=== PATIENT | female | born 1985 ===

== ENCOUNTER 2020-08-30 02:26 | Inpatient (IN) | payer BC ==
[2020-08-30] VITALS (8 sets, daily range): BP systolic 103–135; BP diastolic 72–86
[~2020-08-30] VITALS: Ht 152 cm; Wt 125.3 kg
[2020-08-30] MEDS ORDERED: MELATONIN 3 MG TABLET PO PRN (03:00)
[2020-08-30] MEDS ORDERED: diphenhydrAMINE 25 MG TAB (BENADRYL) PO PRN (03:00)
[2020-08-30] MEDS ORDERED: ONDANSETRON 4 MG (ZOFRAN) ORAL DISSOLVE TAB PO PRN (03:00)
[2020-08-30] MEDS ORDERED: ENOXAPARIN 40 MG/0.4 ML (LOVENOX) SYR SC SCH (03:00)
[2020-08-30] MEDS ORDERED: polyethylene glycoL POWDER 17 GM (MIRALAX) PACK PO PRN (03:00)
[2020-08-30] MEDS ORDERED: MILK OF MAGNESIA 400 MG/5 ML 30 ML UDC PO PRN (03:00)
[2020-08-30] MEDS ORDERED: ANTACID SUSP 30 ML UDC (MYLANTA) PO PRN (03:00)
[2020-08-30] MEDS ORDERED: ONDANSETRON 4 MG/2 ML (SDV) Z0FRAN IV PRN (03:00)
[2020-08-30] MEDS: inSUlin ASPART (NovoLOG) 1 UNIT/0.01 ML (CHARGE PER UNIT) SC SCH ×4 (06:38→21:27)
[2020-08-30 06:51] LABS: BASOPHILS % (AUTO) 0 % (0-10); EOSINOPHILS % (AUTO) 0 % (0-10); HEMATOCRIT 38 % (35-52); HEMOGLOBIN 12.8 g/dL (11.5-16.0); LYMPHOCYTES # (AUTO) 0.8 10^3/uL (1.0-4.0); LYMPHOCYTES % (AUTO) 20 % (12-44); MEAN CORPUSCULAR HEMOGLOBIN 29 pg (25-34); MEAN CORPUSCULAR HGB CONC 34 g/dL (32-36); MEAN CORPUSCULAR VOLUME 87 fL (80-99); MEAN PLATELET VOLUME 9.7 fL (9.0-12.2); MONOCYTES # (AUTO) 0.1 10^3/uL (0.0-1.0); MONOCYTES % (AUTO) 3 % (0-12); NEUTROPHILS # (AUTO) 3.1 10^3/uL (1.8-7.8); NEUTROPHILS % (AUTO) 77 % (42-75); PLATELET COUNT 144 10^3/uL (130-400)
[2020-08-30 07:00] LABS: CHLORIDE 107 MMOL/L (98-107); POTASSIUM 3.9 MMOL/L (3.6-5.0); SODIUM 140 MMOL/L (135-145)
[2020-08-30 07:01] LABS: CALCIUM 8.2 MG/DL (8.5-10.1)
[2020-08-30 07:02] LABS: GLUCOSE 123 MG/DL (70-105)
[2020-08-30 07:03] LABS: CARBON DIOXIDE 22 MMOL/L (21-32)
[2020-08-30 07:06] LABS: GFR ESTIMATED > 60
[2020-08-30 07:07] LABS: BUN/CREATININE RATIO 10
[2020-08-30] MEDS: dexAMETHasone 6 MG TAB (DECADRON) PO SCH (08:17)
[2020-08-30] MEDS: PARoxetine 10 MG (PAXIL) TAB PO SCH (08:17)
[2020-08-30] MEDS: ENOXAPARIN 60 MG/0.6 ML (LOVENOX) SYR SC SCH ×2 (08:17→20:24)
[2020-08-30] MEDS: ACETAMINOPHEN 325 MG TABLET PO PRN (08:26)
--- NOTE | 2020-08-30 08:37 | Diagnostic Imaging Report ---
INDICATION: Hypoxia. TECHNIQUE: Single view chest 8:24 AM. CORRELATION STUDY: None FINDINGS: Heart size borderline enlarged. Vasculature within normal limits. Lung bases are somewhat obscured. No definitive infiltrate. IMPRESSION: 1. No definite acute cardiopulmonary abnormality given limitations on this study. Dictated by: Dictated on workstation # [id number]
[2020-08-30] MEDS: RT-ALBUTEROL INHALER HFA (VENTOLIN HFA) 18 GM IH SCH ×2 (11:03→20:48)
[2020-08-30] MEDS ORDERED: REMDESIVIR INJ 200 MG in NS (IVPB) 210 ML IV ONE (12:15)
--- NOTE | 2020-08-30 12:23 | History & Physical-Hospitalist ---
History of Present Illness HPI/Chief Complaint Deb Oliveira is a 34-year-old female with history of migraines, morbid obesity, who presented with shortness of breath. She says that everyone in her family has Covid. She was tested a week ago and was negative. Since then she has been having cough, fevers, shortness of breath. She has lost her sense of taste and smell. She was retested last night in the [facility] ER and was positive. She reports that she has had some nausea. She denies abdominal pain. She denies chest pain. She has had some diarrhea. She denies lower extremity swelling. Source: patient Exam Limitations: no limitations Date Seen 08/30/20 Time Seen by a Provider: 10:55 Attending Physician Keisha Gunn MD PCP No,Local Physician Referring Physician Date of Admission Aug 30, 2020 at 05:34 Home Medications & Allergies Home Medications Reviewed patient Home Medication Reconciliation performed by pharmacy medication reconciliations tool repair technician and/or nursing. Patients Allergies have been reviewed. Allergies Allergies Coded Allergies prednisone (Verified Allergy, Intermediate, Legs go numb, 08/30/20) Past [id number] Hx Patient Social History Tobacco Use?: No Smoking Status: Never a Smoker Smokeless Tobacco Frequency: Never a User Use of E-Cig and/or Vaping dev: No Substance use?: No Alcohol Use?: No Pt feels they are or have been: No Immunizations Up To Date Tetanus Booster (TDap): More Than 5 Years Hepatitis A: No Hepatitis B: No Current Status status: No status: No Advance Directives: No Primary Language: [place] Leonean Preferred Spoken Language: [place] Leonean Is interpretation needed?: No Past Medical History Headaches /Migraines Family Medical History No Pertinent Family Hx Review of Systems Constitutional: fever, malaise EENTM: no symptoms reported Respiratory: cough, short of breath Cardiovascular: no symptoms reported Gastrointestinal: diarrhea, nausea Genitourinary: no symptoms reported Musculoskeletal: no symptoms reported Skin: no symptoms reported Psychiatric/Neurological: No Symptoms Reported Physical Exam Physical Exam Vital Signs Vital Signs - First Documented 08/30/20 08/30/20 08/30/20 05:39 05:49 07:30 Temp 36.5 Pulse 104 Resp 18 B/P (MAP) 118/81 (93) Pulse Ox 95 O2 Delivery Nasal Cannula O2 Flow Rate 2.00 FiO2 28 Capillary Refill : Height, Weight, BMI Height: '" Weight: lbs. oz. kg; BMI Method: General Appearance: No Apparent Distress, Obese HEENT: PERRL/EOMI, Pharynx Normal Neck: Normal Inspection, Supple Respiratory: Lungs Clear, Normal Breath Sounds, No Respiratory Distress Cardiovascular: Regular Rate, Rhythm, No Edema, No Murmur Gastrointestinal: Normal Bowel Sounds, Non Tender, Soft Extremity: Normal Inspection, Non Tender, No Pedal Edema Neurologic/Psychiatric: Alert, Oriented x3, No Motor/Sensory Deficits, Normal Mood/Affect Skin: Normal Color, Warm/Dry Results Results/Procedures Labs Laboratory Tests 08/30/20 06:39 Patient resulted labs reviewed. Imaging: Reviewed Imaging Report Assessment/Plan Admission Diagnosis Acute respiratory failure due to COVID-19 Admission Status: Inpatient Order (span 2 midnights) Reason for Inpatient Admission: Respiratory failure requiring supplemental oxygen Assessment and Plan Acute respiratory failure due to COVID-19 COVID+ at outside ER Started on Decadron Supplemental oxygen as needed Discussed remdesivir and convalescent plasma and patient agrees Procalcitonin negative, chest x-ray without infiltrate, no antibiotics D-dimer negative Migraines Abortive medications as needed Morbid obesity Clinically significant, no acute management needs DVT prophylaxis: Lovenox Diagnosis/Problems Diagnosis/Problems (1) Acute respiratory failure due to COVID-19 Status: Acute (2) Morbid obesity Status: Chronic (3) Migraines Status: Chronic KEISHA GUNN MD Aug 30, 2020 12:23
[2020-08-30] MEDS ORDERED: NS IV 500 ML 500 ML ONE (15:57)
[2020-08-30] MEDS: ACET/BUTAL/CAFF (FIORICET) TAB PO PRN (16:22)
[2020-08-30] MEDS ORDERED: NS IV 500 ML 500 ML IV ONE (16:30)
[2020-08-30] MEDS: guaiFENesin/DM (ROBITUSSIN DM) 10 ML UDC PO PRN (20:23)
[2020-08-31] VITALS (7 sets, daily range): BP systolic 113–143; BP diastolic 77–90
[2020-08-31] MEDS: guaiFENesin/DM (ROBITUSSIN DM) 10 ML UDC PO PRN ×3 (00:34→21:15)
[2020-08-31] MEDS: ACETAMINOPHEN 325 MG TABLET PO PRN (02:10)
[2020-08-31] MEDS: dexAMETHasone 6 MG TAB (DECADRON) PO SCH (04:33)
[2020-08-31] MEDS: inSUlin ASPART (NovoLOG) 1 UNIT/0.01 ML (CHARGE PER UNIT) SC SCH (04:33)
[2020-08-31 05:02] LABS: ALBUMIN 3.6 GM/DL (3.2-4.5)
[2020-08-31 05:03] LABS: CHLORIDE 106 MMOL/L (98-107); POTASSIUM 3.5 MMOL/L (3.6-5.0); SODIUM 141 MMOL/L (135-145)
[2020-08-31 05:04] LABS: CALCIUM 8.7 MG/DL (8.5-10.1)
[2020-08-31 05:05] LABS: GLUCOSE 94 MG/DL (70-105); TOTAL PROTEIN 6.5 GM/DL (6.4-8.2)
[2020-08-31 05:06] LABS: CARBON DIOXIDE 23 MMOL/L (21-32)
[2020-08-31 05:07] LABS: BILIRUBIN,TOTAL 0.3 MG/DL (0.1-1.0)
[2020-08-31 05:08] LABS: ALKALINE PHOSPHATASE 59 U/L (40-136)
[2020-08-31 05:09] LABS: CREATININE SERUM 0.86 MG/DL (0.60-1.30); GFR ESTIMATED > 60
[2020-08-31 05:10] LABS: BUN/CREATININE RATIO 12
[2020-08-31 05:11] LABS: ALANINE AMINOTRANSFERASE 23 U/L (0-55)
[2020-08-31] MEDS: RT-ALBUTEROL INHALER HFA (VENTOLIN HFA) 18 GM IH SCH ×2 (09:10→20:50)
[2020-08-31] MEDS: ENOXAPARIN 60 MG/0.6 ML (LOVENOX) SYR SC SCH ×2 (10:44→21:15)
[2020-08-31] MEDS: PARoxetine 10 MG (PAXIL) TAB PO SCH (10:45)
[2020-08-31] MEDS: ACET/BUTAL/CAFF (FIORICET) TAB PO PRN (12:50)
[2020-08-31] MEDS: REMDESIVIR INJ 100 MG in NS (IVPB) 230 ML IV SCH (12:50)
--- NOTE | 2020-08-31 13:10 | Progress Note - Hospitalist ---
Subjective HPI/CC On Admission Date Seen by Provider: Aug 31, 2020 Time Seen by Provider: 11:00 Deb Oliveira is a 34-year-old female with history of migraines, morbid obesity, who presented with shortness of breath. She says that everyone in her family has Covid. She was tested a week ago and was negative. Since then she has been having cough, fevers, shortness of breath. She has lost her sense of taste and smell. She was retested last night in the [facility] ER and was positive. She reports that she has had some nausea. She denies abdominal pain. She denies chest pain. She has had some diarrhea. She denies lower extremity swelling. Subjective/Events-last exam She continues to feel short of breath more so with exertion. She continues to have a cough. She has pain up the back of her neck when she coughs. She has had headaches. She denies chest pain. She denies fevers. Objective Exam Vital Signs Vital Signs Date Time Temp Pulse Resp B/P (MAP) Pulse Ox O2 Delivery O2 Flow Rate FiO2 08/31/20 12:19 36.2 91 18 113/78 (90) 91 Room Air 08/31/20 09:10 2.00 08/30/20 07:30 28 Capillary Refill : General Appearance: No Apparent Distress, Obese Respiratory: Lungs Clear, Normal Breath Sounds, No Respiratory Distress Cardiovascular: Regular Rate, Rhythm, No Edema, No Murmur Gastrointestinal: Normal Bowel Sounds, Non Tender, Soft Extremity: Normal Inspection, Non Tender, No Pedal Edema Neurologic/Psychiatric: Alert, Oriented x3, No Motor/Sensory Deficits, Normal Mood/Affect Skin: Normal Color, Warm/Dry Results/Procedures Lab Laboratory Tests 08/31/20 04:29 Patient resulted labs reviewed. Imaging: Reviewed Imaging Report Assessment/Plan Assessment and Plan Assess & Plan/Chief Complaint Acute respiratory failure due to COVID-19 COVID+ at outside ER Continue Decadron Continue Remdesivir s/p convalescent plasma x1 Procalcitonin negative, chest x-ray without infiltrate, no antibiotics D-dimer negative Supplemental oxygen as needed Migraines Abortive medications as needed Insomnia Add Zolpidem as needed Morbid obesity Clinically significant, no acute management needs DVT prophylaxis: Lovenox Diagnosis/Problems Diagnosis/Problems (1) Acute respiratory failure due to COVID-19 Status: Acute (2) Morbid obesity Status: Chronic (3) Migraines Status: Chronic KELLI GUNN MD Aug 31, 2020 13:10
[2020-08-31] MEDS: ZOLPIDEM 5 MG (AMBIEN) TAB PO PRN (21:14)
[2020-09-01 03:47] VITALS: BP 105/66
[2020-09-01] MEDS: guaiFENesin/DM (ROBITUSSIN DM) 10 ML UDC PO PRN ×2 (04:05→09:48)
[2020-09-01] MEDS: ACETAMINOPHEN 325 MG TABLET PO PRN ×3 (04:06→20:33)
[2020-09-01] MEDS: dexAMETHasone 6 MG TAB (DECADRON) PO SCH (06:27)
[2020-09-01] MEDS: RT-ALBUTEROL INHALER HFA (VENTOLIN HFA) 18 GM IH SCH ×2 (08:20→21:01)
[2020-09-01 08:28] VITALS: BP 113/78
[2020-09-01] MEDS: PARoxetine 10 MG (PAXIL) TAB PO SCH (09:48)
[2020-09-01] MEDS: ENOXAPARIN 60 MG/0.6 ML (LOVENOX) SYR SC SCH ×2 (09:48→20:32)
[2020-09-01] MEDS ORDERED: ACET325T38 PO (10:20)
[2020-09-01] MEDS ORDERED: PARO10TA3 PO (10:20)
[2020-09-01] MEDS ORDERED: ASPI-789 PO (10:20)
[2020-09-01] MEDS ORDERED: RT-ALBUINH INH (10:20)
[2020-09-01] MEDS ORDERED: GALC120P SC (10:20)
[2020-09-01] MEDS ORDERED: RIZA5TAB PO (10:20)
[2020-09-01 11:22] VITALS: BP 120/81
--- NOTE | 2020-09-01 11:49 | Progress Note - Hospitalist ---
Subjective HPI/CC On Admission Date Seen by Provider: Sep 01, 2020 Time Seen by Provider: 11:46 Deb Oliveira is a 34-year-old female with history of migraines, morbid obesity, who presented with shortness of breath. She says that everyone in her family has Covid. She was tested a week ago and was negative. Since then she has been having cough, fevers, shortness of breath. She has lost her sense of taste and smell. She was retested last night in the [facility] ER and was positive. She reports that she has had some nausea. She denies abdominal pain. She de nies chest pain. She has had some diarrhea. She denies lower extremity swelling. Subjective/Events-last exam Pt reports feeling better. Breathing easier. Still short of breath with ambulation though. Down to 0.5lpm of oxygen. Discussed plan to DC tomorrow if continues to do well. Objective Exam Vital Signs Vital Signs Date Time Temp Pulse Resp B/P (MAP) Pulse Ox O2 Delivery O2 Flow Rate FiO2 09/01/20 11:22 36.6 85 18 120/81 (94) 93 Nasal Cannula 0.50 08/30/20 07:30 28 Capillary Refill : General Appearance: No Apparent Distress, WD/WN, Obese Respiratory: Lungs Clear, No Respiratory Distress Cardiovascular: Regular Rate, Rhythm, No Murmur Gastrointestinal: Normal Bowel Sounds, Non Tender, Soft Neurologic/Psychiatric: Alert, Oriented x3 Results/Procedures Lab Patient resulted labs reviewed. Imaging: Reviewed Imaging Report Assessment/Plan Assessment and Plan Assess & Plan/Chief Complaint Acute respiratory failure due to COVID-19 COVID+ at outside ER Continue Decadron Continue Remdesivir s/p convalescent plasma x1 Procalcitonin negative, chest x-ray without infiltrate, no antibiotics D-dimer negative Supplemental oxygen as needed, weaning hopeful to be off completely tomorrow Home study done and revealed 2lpm need with exertion Migraines Abortive medications as needed Insomnia Zolpidem as needed Morbid obesity Clinically significant, no acute management needs DVT prophylaxis: JANEY Dee MD Sep 01, 2020 11:49
[2020-09-01] MEDS: ACET/BUTAL/CAFF (FIORICET) TAB PO PRN (13:00)
[2020-09-01] MEDS: REMDESIVIR INJ 100 MG in NS (IVPB) 230 ML IV SCH (13:54)
[2020-09-01 16:30] VITALS: BP 103/70
[2020-09-01 20:25] VITALS: BP 116/78
[2020-09-01] MEDS: ZOLPIDEM 5 MG (AMBIEN) TAB PO PRN (20:32)
[2020-09-02 00:28] VITALS: BP 97/59
[2020-09-02 04:13] VITALS: BP 118/74
[2020-09-02 07:16] VITALS: BP 116/78
[2020-09-02] MEDS: RT-ALBUTEROL INHALER HFA (VENTOLIN HFA) 18 GM IH SCH (07:25)
[2020-09-02] MEDS: PARoxetine 10 MG (PAXIL) TAB PO SCH (08:40)
[2020-09-02] MEDS: ENOXAPARIN 60 MG/0.6 ML (LOVENOX) SYR SC SCH (08:40)
[2020-09-02] MEDS: dexAMETHasone 6 MG TAB (DECADRON) PO SCH (08:40)
[2020-09-02] MEDS: REMDESIVIR INJ 100 MG in NS (IVPB) 230 ML IV SCH (08:44)
--- NOTE | 2020-09-02 09:31 | Discharge Inst-Simple/Standard ---
Discharge Inst-Standard Patient Instructions/Follow Up Plan of Care/Instructions/FU: Please continue to take your medications as written. Please follow up with your primary care doctor to follow up this hospital stay. Activity as Tolerated: Yes Discharge Diet: No Restrictions Return to The Hospital For: Chest pain, shortness of breath, fever, low oxygen, if you feel you are getting worse. JANEY ODOM MD Sep 02, 2020 09:31
--- NOTE | 2020-09-02 09:32 | Discharge Summary ---
Diagnosis/Chief Complaint Date of Admission Aug 30, 2020 at 05:34 Date of Discharge Discharge Date: Sep 02, 2020 Admission Diagnosis Acute respiratory failure due to COVID-19 Primary Care No,Local Physician Discharge Diagnosis (1) Acute respiratory failure due to COVID-19 Status: Acute (2) Morbid obesity Status: Chronic (3) Migraines Status: Chronic Discharge Summary Discharge Physical Exam Allergies: Coded Allergies: prednisone (Verified Allergy, Intermediate, Legs go numb, 08/30/20) Vitals & I&Os Vital Signs Date Time Temp Pulse Resp B/P (MAP) Pulse Ox O2 Delivery O2 Flow Rate FiO2 09/02/20 07:16 36.5 80 18 116/78 (91) 91 Room Air 09/01/20 11:22 0.50 08/30/20 07:30 28 Hospital Course Labs (last 24 hrs) Patient resulted labs reviewed. Imaging: Reviewed Imaging Report Discharge Home Medications: Active Scripts Active Reported Excedrin Migraine Caplet (Aspirin/Acetaminophen/Caffeine) 1 Each Tablet 2 Each PO Q6-8HR PRN Tylenol (Acetaminophen) 325 Mg Tablet 650 Mg PO Q6H PRN TAKES 2 (325MG) TABLETS Rizatriptan (Rizatriptan Benzoate) 5 Mg Tab.rapdis 5 Mg PO DAILY PRN Paroxetine HCl 10 Mg Tablet 10 Mg PO HS Emgality (Galcanezumab-Gnlm) 120 Mg/1 Ml Pen.injctr 1 Ml SC MONTHLY Proair Hfa (Albuterol Sulfate) 1 Puff Puff 2 Puff INH Q6H PRN Instructions to patient/family Please see electronic discharge instructions given to patient. JANEY ODOM MD Sep 02, 2020 09:32
[2020-09-02] MEDS: ACETAMINOPHEN 325 MG TABLET PO PRN (09:52)
[2020-09-02 11:15] VITALS: BP 127/74
[2020-09-02 16:07] VITALS: BP 127/74
== END 2020-09-02 16:09 | disposition home or self-care (01) | DRG 177 ==
LOC: 4TH 05:34
PROVIDERS: ADMIT Internal Medicine; ATTEND Internal Medicine
PROC: XW033E5 Introduction of Remdesivir Anti-infective into Peripheral Vein, Percutaneous Approach, New Technology Group 5 (ICD-10-PCS; principal; 2020-08-30)
PROC: XW13325 Transfusion of Convalescent Plasma (Nonautologous) into Peripheral Vein, Percutaneous Approach, New Technology Group 5 (ICD-10-PCS; 2020-08-30)
DX: U07.1 COVID-19 (principal); J96.01 Acute respiratory failure with hypoxia; Z68.43 Body mass index [BMI] 50.0-59.9, adult; G43.909 Migraine, unspecified, not intractable, without status migrainosus; E66.01 Morbid (severe) obesity due to excess calories; Z73.0 Burn-out; G47.00 Insomnia, unspecified
CPT/HCPCS: 36415; 71045; 80048; 80053; 82947; 84145; 85025; 86900; 86901; 94640; 94760; 94761